=== PATIENT | male | born 1995 | race Hispanic/Latino ===

== ENCOUNTER 2024-02-17 20:58 | Emergency (ER) | payer OTHER ==
[~2024-02-17] VITALS: Ht 175.3 cm; Wt 60.3 kg
[~2024-02-17 20:58] MED LIST: AUGMENTIN 500-1 EACH PO; MOTRIN200 MG PO
[2024-02-17 21:14] VITALS: TEMP 98.6
[2024-02-17 21:54] LABS: BASOPHILS # (AUTO) 0.1 (0.0-0.1); BASOPHILS % 0.6 % (0.0-1.0); EOSINOPHILS # (AUTO) 0.5 (0.0-0.4); HEMATOCRIT 41.1 % (38.2-49.6); HEMOGLOBIN 13.3 g/dL (14.0-18.0); LYMPHOCYTES # (AUTO) 2.9 (1.0-3.2); LYMPHOCYTES % 26.1 % (18.0-39.1); MEAN CORPUSCULAR HEMOGLOBIN 30.6 pg (28-32); MEAN CORPUSCULAR HGB CONC 32.4 g/dL (31-35); MEAN CORPUSCULAR VOLUME 94.7 fL (81-99); MONOCYTES # (AUTO) 0.8 (0.2-0.8); MONOCYTES % 7.5 % (4.4-11.3); NEUTROPHILS # (AUTO) 6.9 (2.1-6.9); NEUTROPHILS % 61.5 % (38.7-80.0); PLATELET COUNT 284 x10e3/uL (140-360); RED BLOOD COUNT 4.34 x10e6/uL (4.3-5.7); RED CELL DISTRIBUTION WIDTH 12.2 % (11.7-14.4); WHITE BLOOD COUNT 11.23 x10e3/uL (4.8-10.8)
[2024-02-17] MEDS: KETOROLAC TROMETHAMINE 30 MG/ML VIAL IV STA (22:00)
[2024-02-17 22:01] LABS: BILIRUBIN,URINE NEGATIVE (NEGATIVE); CLARITY,URINE SL CLOUDY (CLEAR); COLOR,URINE YELLOW (YELLOW); GLUCOSE, URINE NEGATIVE (NEGATIVE); KETONES,URINE TRACE (NEGATIVE); LEUKOCYTE ESTERASE ,URINE SMALL (NEGATIVE); NITRITE,URINE NEGATIVE (NEGATIVE); PH,URINE 6.5 (5 - 7); PROTEIN,URINE DIPSTICK >=300 (NEGATIVE); URINE UROBILINOGEN 0.2 mg/dL (0.2 - 1)
[2024-02-17 22:04] LABS: ALBUMIN 4.1 g/dL (3.5-5.0); ALBUMIN/GLOBULIN RATIO 1.7 (0.8-2.0); ANION GAP 15.1 mmol/L (8-16); BILIRUBIN,TOTAL 0.6 mg/dL (0.2-1.2); CALCIUM 9.4 mg/dL (8.4-10.2); CREATININE, SERUM 0.98 mg/dL (0.72-1.25); POTASSIUM 4.1 mmol/L (3.5-5.1); TOTAL PROTEIN 6.5 g/dL (6.5-8.1)
[2024-02-17 22:09] LABS: BACTERIA,URINE MANY /HPF
[2024-02-17 22:10] LABS: EPITHELIAL CELLS,URINE FEW /LPF; RBC,URINE >50 /HPF (0-5)
[2024-02-17 23:00] VITALS: PULSE 64; RESP 16; O2SAT 100
[2024-02-17] MEDS ORDERED: CEFDINIR300 MG PO (23:10)
[2024-02-17] MEDS ORDERED: KETOROLAC TROME10 MG PO (23:10)
[2024-02-17] MEDS ORDERED: ONDANSETRON ODT4 MG SL (23:10)
== END 2024-02-17 23:32 | disposition home or self-care (01) ==
LOC: ER 21:06
DX: R30.0 Dysuria (principal); N39.0 Urinary tract infection, site not specified; N20.1 Calculus of ureter; F41.9 Anxiety disorder, unspecified; F90.9 Attention-deficit hyperactivity disorder, unspecified type; F17.210 Nicotine dependence, cigarettes, uncomplicated
CPT/HCPCS: 36415; 74176; 80053; 81001; 85025; 99284; J1885